=== PATIENT | male | born 1995 | race Hispanic/Latino ===

== ENCOUNTER 2017-05-02 08:00 | Outpatient (CLI) | payer BC ==
--- NOTE | 2017-05-02 10:20 | ULT ---
ULTRASOUND GALLBLADDER RIGHT UPPER QUADRANT: HISTORY: Right upper quadrant pain. COMPARISON: None. FINDINGS: Visualized portions of the pancreas are unremarkable. Hepatic echotexture is normal. Liver measures 12.6 cm in length. The gallbladder is normal. The portal vein is patent, antegrade flow. Common bile duct measures 3 m m. Gallbladder is normal. No cholelithiasis. The right kidney measures 10.7 x 4 x 4.3 cm. IMPRESSION: Normal examination of the abdomen. POS: [facility]
== END 2017-05-02 08:01 | disposition home or self-care (01) ==
LOC: ULT 08:00
PROVIDERS: ATTEND Internal Medicine
DX: R10.11 Right upper quadrant pain (principal)
CPT/HCPCS: 76705